=== PATIENT | male | born 1995 | race Caucasian/White ===

== ENCOUNTER 2017-01-30 09:19 | Emergency (ER) | payer SELFPAY | END 2017-01-30 10:44 | disposition home or self-care (01) | LOC: D.ER 09:19 | DX: S61.210A Laceration without foreign body of right index finger without damage to nail, initial encounter (principal); W26.8XXA Contact with other sharp object(s), not elsewhere classified, initial encounter; Y93.89 Activity, other specified; Y92.89 Other specified places as the place of occurrence of the external cause ==

== ENCOUNTER 2017-03-14 23:22 | Emergency (ER) | payer SELFPAY ==
[2017-03-15 00:08] LABS: HEMATOCRIT 41.6 % (42.0-54.0); HEMOGLOBIN 14.6 g/dL (13.5-17.5); MCH 30.3 pg (26.0-34.0); MCHC 35.1 g/dL (31.0-37.0); MCV 86.3 fL (80.0-100.0); MEAN PLATELET VOLUME 10.2 fL (7.4-10.4); NEUTROPHILS 60.7 % (40-80); PLATELET COUNT 257 10x3/uL (130-400); RBC 4.82 10x6/uL (4.20-6.10); RDW 12.9 % (11.5-14.5); WBC 7.9 10x3/uL (4.8-10.8)
[2017-03-15 00:24] LABS: ALKALINE PHOSPHATASE 89 U/L (46-116); ALT (SGPT) 67 U/L (10-68); BILIRUBIN - TOTAL 0.35 mg/dL (0.2-1.3); CALC OSMOLALITY 280 mosm/kg (275-300); CALCIUM 8.2 mg/dL (8.5-10.1); CARBON DIOXIDE 25.2 mmol/L (21.0-32.0); CHLORIDE - SERUM 103 mmol/L (98-107); CREATININE - SERUM 0.8 mg/dL (0.6-1.3); GLUCOSE 97 mg/dL (74-106); POTASSIUM - SERUM 3.5 mmol/L (3.5-5.1); PROTEIN - SERUM 7.7 g/dL (6.4-8.2); SODIUM 139 mmol/L (136-145); UREA NITROGEN 22 mg/dL (7-18); eGFR NON AFRICAN AMERICAN > 90 mL/min (90-120)
[2017-03-15 00:35] LABS: CKMB 0.7 U/L (0.0-3.6); CREATINE KINASE 192 UL (21-232)
[2017-03-15 00:36] LABS: TROPONIN-I < 0.017 ng/mL (0.000-0.060)
[2017-05-01] MEDS ORDERED: LOMOTIL TABLET1 TAB PO (17:27)
[2017-05-03 13:31] VITALS: BMI 35.5
== END 2017-03-15 01:11 | disposition home or self-care (01) ==
LOC: D.ER 23:22
PROVIDERS: Physician Assistant Medical
DX: R07.89 Other chest pain (principal); M79.1 Myalgia; I10 Essential (primary) hypertension; R00.1 Bradycardia, unspecified

== ENCOUNTER 2017-05-03 12:42 | Day surgery (SDC) | payer BC, MEDICAID ==
[~2017-05-03] VITALS: Ht 182.9 cm; Wt 118.4 kg
[~2017-05-03 12:42] MED LIST: LOMOTIL TABLET1 TAB PO
[2017-05-03 13:31] VITALS: BP 132/83; Ht 182.9 cm; Wt 118.4 kg
[2017-05-03] MEDS ORDERED: HYDROCODON-ACE1 EAC7 PO (14:28)
--- NOTE | 2017-05-03 16:50 | NUR ---
1600 BACK FROM [place] VERY SLEEPY ROUSES SOME BUT SLEEPY, O2 TO 2L N/C HAD DILAUDID NO COS OF PAIN 4 DRESSING STERI STRIPS C/D/I.
--- NOTE | 2017-05-03 18:20 | NUR ---
1700 STILL VERY SLEEPY RESP NONLABORED O2 OFF SAT 95 %.
--- NOTE | 2017-05-03 18:21 | NUR ---
1730 TRIED TO ASSIST PATIENT UP BUT NOT TOO STEADY ASSISTED WITH URINAL UNABLE TO URINATE. IV FLUIDS INFUSING AND ENCOURAGED FLUIDS.
--- NOTE | 2017-05-03 19:13 | NUR ---
1830 STILL SOME SLEEPY TAKEN IN LIQUIDS. MOVING AROUND SOME.
--- NOTE | 2017-05-03 19:47 | NUR ---
1915 WALKING IN THE HALLS STILL UNABLE TO URINATE.
--- NOTE | 2017-05-03 19:47 | NUR ---
1944 BLADDER SCAN DONE 182ML. FEELS LIKE THE URINE IS RIGHT THERE JUST WONT COME OUT.
--- NOTE | 2017-05-03 19:50 | NUR ---
[address] BROWN [employer] TE[employer] FOR [facility].
--- NOTE | 2017-05-03 20:03 | NUR ---
[address] BROWN 182 FROM BLADDER SCAN HAS DRANK HAD FLUIDS AND WALKED, AND UNABLE TO URINATE. REFUSING A CATHETER. STATED MAY BE DISCHARGED HOME AND TOLD IF UNABLE TO URINATE IN 8 HOURS WILL NEED TO GO TO THE ER.
--- NOTE | 2017-05-03 20:16 | NUR ---
2005 IV DCD CATHETER INTACT. WENT OVER DISCHARGE INSTRUCTIONS WITH PATIENT AND GIRLFRIEND,HAS SCRIPT AND FOLLOW UP APPOINTMENT AND LAPAROSCOPIC GALLBLADDER INSTRUCTIONS GONE OVER.
--- NOTE | 2017-05-03 20:18 | NUR ---
2015 TO HOME VIA W/C WITH GIRLFRIEND.
== END 2017-05-03 20:15 | disposition home or self-care (01) ==
LOC: D.OPS 12:42 → D.PAN 13:30 → D.OPS 14:00
DX: K80.10 Calculus of gallbladder with chronic cholecystitis without obstruction (principal); I10 Essential (primary) hypertension